=== PATIENT | female | born 1965 | race Hispanic/Latino ===

== ENCOUNTER 2017-01-25 09:55 | Outpatient (CLI) | payer BC ==
--- NOTE | 2017-01-25 11:14 | RAD ---
TWO VIEWS RIGHT HEEL: History: Pain in the right heel for six months. FINDINGS: Two views of the right heel shows no evidence of acute fracture or dislocation. There are small post erior and plantar calcaneal enthesophytes. IMPRESSION: Small calcaneal spurs without acute osseous abnormality. POS: [facility]
== END 2017-01-25 09:56 | disposition home or self-care (01) ==
LOC: SCSRAD 09:55
PROVIDERS: ATTEND Family Medicine
DX: M79.671 Pain in right foot (principal); M77.31 Calcaneal spur, right foot

== ENCOUNTER 2021-08-17 10:19 | Outpatient (CLI) | payer BC ==
[2021-08-17 15:45] LABS: Free T4 (Free Thyroxine) 0.82 ng/dL (0.70-1.48); Thyroid Stimulating Hormone 4.8158 uIU/mL (0.35-4.94)
== END 2021-08-17 10:20 | disposition home or self-care (01) ==
LOC: SCSRAD 10:19
PROVIDERS: ATTEND Family Medicine
DX: T14.8XXD Other injury of unspecified body region, subsequent encounter (principal); E03.9 Hypothyroidism, unspecified; M79.89 Other specified soft tissue disorders
CPT/HCPCS: 36415; 84439; 84443; 84481